=== PATIENT | female | born 1950 ===

== ENCOUNTER 2018-01-02 22:11 | Emergency (ER) | payer MEDICARE, OTHER ==
[2018-01-02] MEDS ORDERED: METF-411 PO (22:22)
[2018-01-02] MEDS ORDERED: IPRA4AER IH (22:24)
[2018-01-02] MEDS ORDERED: ASPI81TA94 PO (22:24)
[2018-01-02] MEDS ORDERED: SERT20OR6 PO (22:24)
--- NOTE | 2018-01-02 22:24 | ER Report ---
History and Physical Time Seen By MD: 22:13 HPI/ROS CHIEF COMPLAINT: Dyspnea HISTORY OF PRESENT ILLNESS: 67-year-old female with end-stage COPD, O2 dependent. She was recently in hospital in [place] she is heading back home to [place]. She was discharged on Levaquin on 12/29/17 afternoon admission for congestive heart failure and pneumonia with COPD exacerbation. She notes while traveling in the car. She did not feel good today. She's beginning progressively short of breath throughout the day. Her saturations dropped into the 70s despite 2 L of supplemental O2. In her grandson switch out the tank in case the O2 tank at run out of oxygen. Integument to feel shortness of breath. She does not have a productive cough or fever. She noted some chest aching earlier today, aggravated by breathing REVIEW OF SYSTEMS: Respiratory: As above Cardiovascular: As above Gastrointestinal: No vomiting, no abdominal pain. Musculoskeletal: No back pain. Allergies: Coded Allergies: No Known Drug Allergies (Unverified , 01/02/18) Home Meds Reported Medications Furosemide (FUROSEMIDE) 20 Mg Tablet, 1 TAB PO Q6H, TAB 01/02/18 Levofloxacin 500 Mg Tab (LEVOFLOXACIN 500 MG TAB) 500 Mg Tablet, 500 MG PO, TAB 01/02/18 Potassium Bicarbonate/Cit Ac (POTASSIUM 25 MEQ TABLET EFF) 25 Meq Tablet.eff, 25 MEQ PO 01/02/18 Lisinopril (LISINOPRIL) 5 Mg Tablet, 5 MG PO QDAY, TAB 01/02/18 Ipratropium/Albuterol Sulfate (COMBIVENT RESPIMAT INHAL SPRAY) 4 Gm Aer.w.adap, 1 EACH IH QID 01/02/18 Aspirin (ASPIRIN) 81 Mg Tab.chew, 81 MG PO QDAY, TAB.CHEW 01/02/18 Sertraline Hcl (ZOLOFT) 20 Mg/1 Ml Oral.conc, 20 MG PO 01/02/18 Metformin Hcl (METFORMIN HCL) 500 Mg Tablet, 1 TAB PO BID, TAB 01/02/18 Past Medical/Surgical History Type II diabetes, hypertension, COPD, O2 dependent, congestive heart failure Reviewed Nurses Notes: Yes Old Medical Records Reviewed: Yes Constitutional Vital Sign - Last 24 Hours 01/02/18 01/02/18 01/02/18 01/02/18 22:11 22:15 22:15 22:26 Temp 98.1 Pulse ??? 116 105 Resp 20 B/P (MAP) 115/101 (106) Pulse Ox 88 100 O2 Delivery Room Air 01/02/18 01/02/18 01/02/18 01/02/18 22:29 22:39 22:41 22:56 Pulse 108 102 104 Resp 20 B/P (MAP) 105/66 (79) Pulse Ox 97 96 01/02/18 01/02/18 01/02/18 01/02/18 23:00 23:11 23:26 23:30 Pulse 102 ??? B/P (MAP) 97/53 (68) ???/??? (1665) Pulse Ox 97 01/02/18 01/02/18 23:37 23:41 Pulse ??? O2 Flow Rate 4.0 Physical Exam Vital signs stable, tachycardia, air hunger, increased respiratory rate, pulse ox on her baseline 2 L is in the low 80s. She is turned up to 4 L to get saturations into the mid 90s. General Appearance: The patient is alert, has no immediate need for airway protection and no current signs of toxicity. Mild respiratory distress, obvious air hunger HEENT: Pupils equal and round no injection. TMs normal, oropharynx with mild erythema, no exudate, mucous membranes appear dry Respiratory: Chest is non tender, decreased breath sounds throughout Cardiac: regular rate and rhythm Gastrointestinal: Abdomen is soft and non tender, no masses, bowel sounds normal. Musculoskeletal: Neck: Neck is supple and non tender. No JVD, no lymphadenopathy Extremities have full range of motion and are non tender. Skin: No rashes or lesions. DIFFERENTIAL DIAGNOSIS: After history and physical exam differential diagnosis was considered for shortness of breath including but not limited to pulmonary infectious process, COPD, asthma, pulmonary embolus and congestive heart failure. Medical Decision Making Data Points Result Diagram: 01/02/18223301/02/182233 Laboratory Hematology Test 01/02/18 22:34 01/02/18 23:21 Red Blood Count 4.14 M/uL (4.17-5.56) Mean Corpuscular Volume 76.8 fL (80.0-96.0) Mean Corpuscular Hemoglobin 24.4 pg (26.0-33.0) Mean Corpuscular Hemoglobin Concent 31.7 g/dL (32.0-36.0) Red Cell Distribution Width 18.4 % (11.5-14.5) Mean Platelet Volume 7.5 fL (7.2-11.1) Neutrophils (%) (Auto) 76.0 % (39.4-72.5) Lymphocytes (%) (Auto) 15.6 % (17.6-49.6) Monocytes (%) (Auto) 6.1 % (4.1-12.4) Eosinophils (%) (Auto) 1.9 % (0.4-6.7) Basophils (%) (Auto) 0.4 % (0.3-1.4) Nucleated RBC Relative Count (auto) 0.1 /100WBC Neutrophils # (Auto) 8.7 K/uL (2.0-7.4) Lymphocytes # (Auto) 1.8 K/uL (1.3-3.6) Monocytes # (Auto) 0.7 K/uL (0.3-1.0) Eosinophils # (Auto) 0.2 K/uL (0.0-0.5) Basophils # (Auto) 0.0 K/uL (0.0-0.1) Nucleated RBC Absolute Count (auto) 0.02 K/uL D-Dimer Quantitative (PE/DVT) 1.30 ug/ml (0-0.50) Sodium Level 141 mmol/L (137-145) Potassium Level 4.6 mmol/L (3.5-5.0) Chloride Level 95 mmol/L (98-107) Carbon Dioxide Level 40 mmol/L (22-31) Blood Urea Nitrogen 15 mg/dl (7-18) Creatinine 0.80 mg/dl (0.52-1.04) Glomerular Filtration Rate Calc > 60.0 Random Glucose 125 mg/dl (75-110) Calcium Level 9.2 mg/dl (8.4-10.2) Total Bilirubin 0.4 mg/dl (0.2-1.3) Aspartate Amino Transf (AST/SGOT) 36 U/L (0-35) Alanine Aminotransferase (ALT/SGPT) 49 U/L (0-56) Alkaline Phosphatase 90 U/L (0-126) Troponin I 0.016 ng/ml B-Type Natriuretic Peptide 1470 pg/ml (0-100) Total Protein 7.2 g/dl (6.3-8.2) Albumin 3.7 g/dl (3.5-5.0) Urine Color Yellow Urine Clarity Clear Urine pH 8.0 pH (4.8-9.5) Urine Specific [place] 1.015 Urine Protein Negative mg/dL (NEGATIVE) Urine Glucose (UA) Negative mg/dL (NEGATIVE) Urine Ketones Negative mg/dL (NEGATIVE) Urine Blood Negative (NEGATIVE) Urine Nitrite Negative (NEGATIVE) Urine Bilirubin Negative (NEGATIVE) Urine Urobilinogen 2.0 mg/dL (0.2-1.9) Urine Leukocyte Esterase Negative (NEGATIVE) Urine RBC None /HPF (0-2/HPF) Urine WBC 1 /HPF (0-5/HPF) Urine Squamous Epithelial Cells Moderate /LPF (</=FEW) Urine Bacteria Negative /HPF (NONE-FEW) Urine Mucus None /HPF (NONE-FEW) Chemistry Test 01/02/18 22:34 01/02/18 23:21 White Blood Count 11.5 k/uL (4.5-11.0) Red Blood Count 4.14 M/uL (4.17-5.56) Hemoglobin 10.1 g/dL (12.0-16.0) Hematocrit 31.8 % (34.0-47.0) Mean Corpuscular Volume 76.8 fL (80.0-96.0) Mean Corpuscular Hemoglobin 24.4 pg (26.0-33.0) Mean Corpuscular Hemoglobin Concent 31.7 g/dL (32.0-36.0) Red Cell Distribution Width 18.4 % (11.5-14.5) Platelet Count 430 K/uL (150-450) Mean Platelet Volume 7.5 fL (7.2-11.1) Neutrophils (%) (Auto) 76.0 % (39.4-72.5) Lymphocytes (%) (Auto) 15.6 % (17.6-49.6) Monocytes (%) (Auto) 6.1 % (4.1-12.4) Eosinophils (%) (Auto) 1.9 % (0.4-6.7) Basophils (%) (Auto) 0.4 % (0.3-1.4) Nucleated RBC Relative Count (auto) 0.1 /100WBC Neutrophils # (Auto) 8.7 K/uL (2.0-7.4) Lymphocytes # (Auto) 1.8 K/uL (1.3-3.6) Monocytes # (Auto) 0.7 K/uL (0.3-1.0) Eosinophils # (Auto) 0.2 K/uL (0.0-0.5) Basophils # (Auto) 0.0 K/uL (0.0-0.1) Nucleated RBC Absolute Count (auto) 0.02 K/uL D-Dimer Quantitative (PE/DVT) 1.30 ug/ml (0-0.50) Glomerular Filtration Rate Calc > 60.0 Calcium Level 9.2 mg/dl (8.4-10.2) Total Bilirubin 0.4 mg/dl (0.2-1.3) Aspartate Amino Transf (AST/SGOT) 36 U/L (0-35) Alanine Aminotransferase (ALT/SGPT) 49 U/L (0-56) Alkaline Phosphatase 90 U/L (0-126) Troponin I 0.016 ng/ml B-Type Natriuretic Peptide 1470 pg/ml (0-100) Total Protein 7.2 g/dl (6.3-8.2) Albumin 3.7 g/dl (3.5-5.0) Urine Color Yellow Urine Clarity Clear Urine pH 8.0 pH (4.8-9.5) Urine Specific [place] 1.015 Urine Protein Negative mg/dL (NEGATIVE) Urine Glucose (UA) Negative mg/dL (NEGATIVE) Urine Ketones Negative mg/dL (NEGATIVE) Urine Blood Negative (NEGATIVE) Urine Nitrite Negative (NEGATIVE) Urine Bilirubin Negative (NEGATIVE) Urine Urobilinogen 2.0 mg/dL (0.2-1.9) Urine Leukocyte Esterase Negative (NEGATIVE) Urine RBC None /HPF (0-2/HPF) Urine WBC 1 /HPF (0-5/HPF) Urine Squamous Epithelial Cells Moderate /LPF (</=FEW) Urine Bacteria Negative /HPF (NONE-FEW) Urine Mucus None /HPF (NONE-FEW) Coagulation Test 01/02/18 22:34 D-Dimer Quantitative (PE/DVT) 1.30 ug/ml Urinalysis Test 01/02/18 23:21 Urine Color Yellow Urine Clarity Clear Urine pH 8.0 pH (4.8-9.5) Urine Specific [place] 1.015 Urine Protein Negative mg/dL (NEGATIVE) Urine Glucose (UA) Negative mg/dL (NEGATIVE) Urine Ketones Negative mg/dL (NEGATIVE) Urine Blood Negative (NEGATIVE) Urine Nitrite Negative (NEGATIVE) Urine Bilirubin Negative (NEGATIVE) Urine Urobilinogen 2.0 mg/dL (0.2-1.9) Urine Leukocyte Esterase Negative (NEGATIVE) Urine RBC None /HPF (0-2/HPF) Urine WBC 1 /HPF (0-5/HPF) Urine Squamous Epithelial Cells Moderate /LPF (</=FEW) Urine Bacteria Negative /HPF (NONE-FEW) Urine Mucus None /HPF (NONE-FEW) EKG/Imaging EKG Interpretation 12 lead EK Rhythm: Sinus tachycardia, rate 107 [place]: normal QRS: normal ST segments: normal, no evidence of ischemia or dysrhythmia Imaging X-ray: Two-view chest x-ray was obtained. I viewed the images myself on the PACS system. My interpretation of the images is: Hyperaeration of the lung [place], no obvious infiltrate or effusion. Normal mediastinum. The radiologist interpretation had no clinically significant variation from this interpretation. ED Course/Re-evaluation Clinical Indication for ER IV: Hydration, IV Access ED Course Patient was admitted to an examination room. H&P was done. The differential diagnoses was considered. Patient was acutely hypoxic on arrival. She does have a known history of COPD O2 dependent. She was just discharged from a hospital 3 days ago in [place] where she was hospitalized for 3 days with COPD exacerbation and pneumonia. Records are copied included in the chart She still taking Levaquin. Her d-dimer here returned elevated. She she states that she had a CT pulmonary angiogram in [place] 3 days ago. Do not think her symptoms are due to a PE. She declines repeat CT scan. Her BNP is elevated at 1400. There is also a component of congestive failure. She has no edema at present. She is on Lasix. I think that she is intolerant of our altitude. She was also trying to sleep in the car, which I think caused her respiratory rate to slow down and she became more hypoxic. Her diagnostic evaluation here shows no acute findings. She feels much better after nebulizer treatment and Solu-Medrol IV. Patient advised to head out of [place] to get to a lower altitude. Patient advised to go to the nearest hospital for any worsening. She is advised to continue all medications as prescribed Decision to Disposition Date: Jan 02, 2018 Decision to Disposition Time: 23:44 Depart Departure Latest Vital Signs Vital Signs Date Time Temp Pulse Resp B/P (MAP) Pulse Ox O2 Delivery O2 Flow Rate FiO2 01/02/18 23:41 ??? 01/02/18 23:37 4.0 01/02/18 23:30 ???/??? (1665) 01/02/18 23:11 97 01/02/18 22:29 20 01/02/18 22:15 98.1 Room Air Impression: Primary Impression: Dyspnea Additional Impressions: COPD exacerbation Congestive heart failure Condition: Improved Disposition: HOME OR SELF-CARE Patient Instructions: COPD (Chronic Obstructive Pulmonary Disease) (ED), Heart Failure (ED) Additional Instructions: Continue on all current medications as prescribed at your discharge from the hospital in [facility] Follow-up with your primary care physician upon returning home in [place] Go to the nearest ER for any worsening Problem Qualifiers Primary Impression: Dyspnea Dyspnea type: unspecified Qualified Codes: R06.00 - Dyspnea, unspecified Additional Impressions: Congestive heart failure Heart failure type: right-sided Heart failure chronicity: chronic Qualified Codes: I50.812 - Chronic right heart failure LIBIA CALLES DO Jan 02, 2018 22:24
[2018-01-02] MEDS ORDERED: LEVO500T83 PO (22:25)
[2018-01-02] MEDS ORDERED: methylPREDNIS SUCC 125 MG/2ML IVP ONE (22:25)
[2018-01-02] MEDS ORDERED: POTA25TA28 PO (22:25)
[2018-01-02] MEDS ORDERED: NS(*) 0.9% 1000 ML BAG 1,000 ML IV ONE (22:25)
[2018-01-02] MEDS ORDERED: FURO-45 PO (22:25)
[2018-01-02] MEDS ORDERED: ALBUTEROL/IPRATROPIUM 3 ML NEB NEB ONE (22:25)
[2018-01-02] MEDS ORDERED: LISI5TAB25 PO (22:25)
[2018-01-02 22:42] LABS: PLATELET COUNT, AUTOMATED 430 K/uL (150-450)
--- NOTE | 2018-01-02 22:51 | EKG ---
FACILITY: [facility] [place] PATIENT NAME: JAS MINAYA : [id number] MR: [id number] V: [id number] EXAM DATE: ORDERING PHYSICIAN: LIBIA CALLES TECHNOLOGIST: DENZEL Test Reason : DYSPNEA Blood Pressure : / mmHG Vent. Rate : 107 BPM Atrial Rate : 107 BPM P-R Int : 164 ms QRS Dur : 088 ms QT Int : 388 ms P-R-T Axes : 080 088 084 degrees QTc Int : 517 ms Sinus tachycardia Poor R wave progression anteriorly Possible LVH Nonspecific ST findings No previous ECGs available Confirmed by ANGEL DUNBAR ([id number] on 01/03/2018 5:19:59 AM Referred By: Confirmed By:ANGEL DUNBAR
--- NOTE | 2018-01-02 23:06 | RADIOLOGY IMAGING REPORT ---
FACILITY: [facility] PATIENT NAME: Sabra Singh : 1950 MR: [id number] V: [id number] EXAM DATE: ORDERING PHYSICIAN: LIBIA CALLES TECHNOLOGIST: Location: [facility] [place] Patient: Sabra Singh : 1950 Visit/Account:[id number] Date of Sevice: 01/02/2018 TWO VIEW CHEST 01/02/2018 10:25 PM. INDICATION: Respiratory distress. COMPARISON: None. FINDINGS: Lungs appear hyperexpanded. No focal consolidation. Mild diffuse bronchitic changes. No pneumothorax or pleural effusion. Pulmonary vasculature is unremarkable. Heart size is normal. IMPRESSION: Question emphysema. No definite acute abnormality. Report Dictated By: Ambrosio Nguyen MD at 01/02/2018 11:02 PM Report E-Signed By: Ambrosio Nguyen MD at 01/02/2018 11:03 PM WSN:[id number]
== END 2018-01-02 23:59 | disposition home or self-care (01) ==
LOC: ER 22:11
DX: I50.812 Chronic right heart failure (principal); J44.1 Chronic obstructive pulmonary disease with (acute) exacerbation
CPT/HCPCS: 71046; 81001; 83880; 84484; 85025; 85379; 93005; 94640; 96361; 96374; 99284; J2930; J7030; J7620; 82040; 82247; 82310; 82374; 82435; 82565; 82947; 84075; 84132; 84155; 84295; 84450; 84460; 84520